=== PATIENT | female | born 1950 | race Caucasian/White ===

== ENCOUNTER 2017-08-25 06:20 | Inpatient (IN) ==
[2017-08-25] MEDS ORDERED: ACETAMINOPHEN 500 MG TABLET PO STA (06:59)
[2017-08-25] MEDS ORDERED: LEVOFLOXACIN INJ 500 MG in PREMIX 1 EACH IV STA (07:06)
[2017-08-25] MEDS ORDERED: ACETAMINOPHEN 500 MG TABLET ONE (07:08)
[2017-08-25] MEDS ORDERED: LEVOFLOXACIN INJ 100 ML IV ONE (07:33)
[2017-08-25 08:01] LABS: ABG Base Excess -1.5 MMOL/L (-2.5-2.5); ABG HCO3 23.1 MMOL/L (20-26); ABG Oxygen Saturation 93.6 % (95-100); ABG PCO2 47.4 MM HG (35-48); ABG PH 7.327 (7.35-7.45); ABG PO2 71.9 MM HG (80-95); ABG TCO2 22.3 MMOL/L (23-27); Allen Test Positive
[2017-08-25] MEDS ORDERED: ALBUTEROL 2.5 MG/3 ML NEB RESP TX PRN (08:54)
[2017-08-25] MEDS ORDERED: diphenhydrAMINE CAP 25 MG CAPSULE PO PRN (08:57)
[2017-08-25] MEDS ORDERED: DOCUSATE SODIUM 100 MG CAPSULE PO PRN (08:57)
[2017-08-25] MEDS ORDERED: PROMETHAZINE 25 MG/1 ML VIAL IM PRN (08:57)
[2017-08-25] MEDS ORDERED: ACETAMINOPHEN 325 MG TABLET PO PRN (08:57)
[2017-08-25] MEDS ORDERED: ONDANSETRON 4 MG/2 ML VIAL IV PRN (08:57)
[2017-08-25] MEDS ORDERED: MEPERIDINE 50 MG TABLET PO PRN (08:59)
[2017-08-25] MEDS ORDERED: NITROGLYCERIN SL 0.4 MG TABLET SL PRN (09:00)
[2017-08-25] MEDS ORDERED: MAGNESIUM SULF RIDER 4 GM in PREMIX 1 EACH IV PRN (09:22)
[2017-08-25] MEDS ORDERED: MAGNESIUM SULF RIDER 2 GM in PREMIX 1 EACH IV PRN (09:22)
[2017-08-25] MEDS: guaiFENesin/DM ER 600-30 MG TABLET PO PRN (11:20)
[2017-08-25] MEDS: amLODIPine 10 MG TABLET PO SCH (11:20)
[2017-08-25] MEDS: NEBIVOLOL 10 MG TABLET PO SCH (11:20)
[2017-08-25] MEDS: ROSUVASTATIN 20 MG TABLET PO SCH (11:20)
[2017-08-25] MEDS: RAMIPRIL 5 MG CAPSULE PO SCH ×2 (11:21→20:20)
[2017-08-25] MEDS: ASPIRIN EC 81 MG TABLET PO SCH (11:21)
[2017-08-25] MEDS: methylPREDNISolone SOD SUC 40 MG/1 ML VIAL IV SCH ×3 (11:21→21:05)
[2017-08-25] MEDS: NIACIN ER 500 MG TABLET PO SCH (11:21)
[2017-08-25] MEDS: MELOXICAM 7.5 MG TABLET PO SCH (11:21)
[2017-08-25] MEDS: OSELTAMIVIR 30 MG CAPSULE PO SCH ×2 (11:21→20:20)
[2017-08-25] MEDS: PANTOPRAZOLE 40 MG TABLET PO SCH (11:21)
[2017-08-25] MEDS: MONTELUKAST 10 MG TABLET PO SCH (11:21)
[2017-08-25] MEDS: SODIUM CHLORIDE 0.9% 1,000 ML IV SCH (11:22)
[2017-08-25] MEDS: BUDESONIDE/FORMOTEROL 160-4.5 INHALER 6 GM INH SCH ×2 (11:22→20:19)
[2017-08-25] MEDS: POTASSIUM CHLORIDE 20 MEQ TABLET PO SCH (11:22)
[2017-08-25 12:24] LABS: CKMB % 3.5 %
[2017-08-25 12:25] LABS: Troponin I Only 0.395 NG/ML (0.00-0.045)
[2017-08-25] MEDS: ALBUTEROL/IPRATROPIUM 3 ML NEB RESP TX SCH ×2 (12:46→19:48)
[2017-08-25] MEDS: FUROSEMIDE 100 MG/10 ML VIAL IV SCH (15:41)
[2017-08-25 16:30] LABS: CKMB % 3.8 %
[2017-08-25 16:31] LABS: Troponin I Only 0.519 NG/ML (0.00-0.045)
[2017-08-25] MEDS: ENOXAPARIN 40 MG/0.4 ML SYRINGE SUBCUT SCH (20:19)
[2017-08-25] MEDS: EZETIMIBE 10 MG TABLET PO SCH (20:20)
[2017-08-26] MEDS: SODIUM CHLORIDE 0.9% 1,000 ML IV SCH ×2 (02:32→17:48)
[2017-08-26] MEDS: methylPREDNISolone SOD SUC 40 MG/1 ML VIAL IV SCH ×4 (02:36→20:52)
[2017-08-26] MEDS: ALBUTEROL/IPRATROPIUM 3 ML NEB RESP TX SCH ×4 (03:30→19:07)
[2017-08-26 05:31] LABS: Basophils % 0.2 % (0.0-0.8); Hematocrit 35.9 VOL% (35.7-47.0); Hemoglobin 11.3 GM/DL (12.0-16.0); Immature Granulocytes % 0.9 %; Immature Granulocytes Absolute 0.18 #; Lymphocytes % 5.1 % (21.3-54.2); Mean Corpuscular HGB Conc 31.5 GM/DL (32-36); Mean Corpuscular Hemoglobin 27 PG (27-34); Mean Corpuscular Volume 86.1 FL (87-102); Monocytes # 0.5 10*3/uL (0.11-0.8); Monocytes % 2.5 % (1.7-12.7); Neutrophils # 17.7 10*3/uL (1.4-7.4); Neutrophils % 91.3 % (38.7-73.9); Platelet Count 156 T/CUMM (130-400); Red Blood Count 4.17 MC/CUMM (3.8-5.5); Red Cell Distribution Width 14.5 % (9.3-17.3); White Blood Count 19.3 T/CUMM (4-12)
[2017-08-26 05:53] LABS: Band Neutrophils 3 % (0-10); Lymphocytes 9 % (20-55); Segmented Neutrophils 85 % (50-85); Total Cells Counted 100
[2017-08-26 05:54] LABS: Giant Platelets Few; Hypochromasia 1+; Microcytosis Slight; Platelet Estimate Normal
[2017-08-26 06:02] LABS: Alanine Aminotransferase 15 U/L (13-56); Alkaline Phosphatase 73 U/L (45-117); Aspartate Amino Transferase 23 U/L (0-37); Bilirubin,Total < 0.39 MG/DL (0.2-1.0); Blood Urea Nitrogen 17 MG/DL (7-18); Calcium 8.1 MG/DL (8.5-10.1); Glucose 155 MG/DL (74-106); Osmolality,Calculated 285.3 MOS/KG (273-304); Potassium 3.4 MMOL/L (3.5-5.1); Sodium 141 MMOL/L (136-145); Total Protein 6.6 G/DL (6.4-8.3)
[2017-08-26] MEDS: LEVOFLOXACIN INJ 750 MG in PREMIX 1 EACH IV SCH (09:42)
[2017-08-26] MEDS: BUDESONIDE/FORMOTEROL 160-4.5 INHALER 6 GM INH SCH ×2 (09:42→20:50)
[2017-08-26] MEDS: FUROSEMIDE 100 MG/10 ML VIAL IV SCH ×2 (09:44→15:32)
[2017-08-26] MEDS: PANTOPRAZOLE 40 MG TABLET PO SCH (09:46)
[2017-08-26] MEDS: RAMIPRIL 5 MG CAPSULE PO SCH ×2 (09:46→20:52)
[2017-08-26] MEDS: NEBIVOLOL 10 MG TABLET PO SCH (09:46)
[2017-08-26] MEDS: amLODIPine 10 MG TABLET PO SCH (09:47)
[2017-08-26] MEDS: POTASSIUM CHLORIDE 20 MEQ TABLET PO SCH (09:47)
[2017-08-26] MEDS: MONTELUKAST 10 MG TABLET PO SCH (09:47)
[2017-08-26] MEDS: NIACIN ER 500 MG TABLET PO SCH (09:47)
[2017-08-26] MEDS: MELOXICAM 7.5 MG TABLET PO SCH (09:47)
[2017-08-26] MEDS: OSELTAMIVIR 30 MG CAPSULE PO SCH ×2 (09:47→20:51)
[2017-08-26] MEDS: ROSUVASTATIN 20 MG TABLET PO SCH (09:47)
[2017-08-26] MEDS: ASPIRIN EC 81 MG TABLET PO SCH (09:47)
[2017-08-26] MEDS: ENOXAPARIN 40 MG/0.4 ML SYRINGE SUBCUT SCH (20:51)
[2017-08-26] MEDS: EZETIMIBE 10 MG TABLET PO SCH (20:52)
[2017-08-26] MEDS: guaiFENesin/DM ER 600-30 MG TABLET PO PRN (20:52)
[2017-08-27] MEDS: ALBUTEROL/IPRATROPIUM 3 ML NEB RESP TX SCH ×5 (00:52→19:42)
[2017-08-27] MEDS: methylPREDNISolone SOD SUC 40 MG/1 ML VIAL IV SCH ×4 (03:51→20:46)
[2017-08-27] MEDS: SODIUM CHLORIDE 0.9% 1,000 ML IV SCH ×3 (03:56→20:46)
[2017-08-27 06:39] LABS: Basophils % 0.1 % (0.0-0.8); Hematocrit 37.1 VOL% (35.7-47.0); Hemoglobin 11.6 GM/DL (12.0-16.0); Immature Granulocytes % 0.6 %; Immature Granulocytes Absolute 0.12 #; Lymphocytes # 0.9 10*3/uL (1.4-4.0); Lymphocytes % 4.4 % (21.3-54.2); Mean Corpuscular HGB Conc 31.3 GM/DL (32-36); Mean Corpuscular Hemoglobin 27 PG (27-34); Mean Corpuscular Volume 86.5 FL (87-102); Mean Platelet Volume 11.2 FL (9.6-12.0); Monocytes # 0.5 10*3/uL (0.11-0.8); Monocytes % 2.6 % (1.7-12.7); Neutrophils % 92.3 % (38.7-73.9); Platelet Count 183 T/CUMM (130-400); Red Blood Count 4.29 MC/CUMM (3.8-5.5); Red Cell Distribution Width 14.6 % (9.3-17.3); White Blood Count 19.5 T/CUMM (4-12)
[2017-08-27 07:11] LABS: Band Neutrophils 2 % (0-10); Hypochromasia 1+; Lymphocytes 3 % (20-55); Microcytosis 1+; Myelocytes 1 %; Platelet Estimate Adequate; Segmented Neutrophils 92 % (50-85); Total Cells Counted 100
[2017-08-27 07:19] LABS: Alanine Aminotransferase 19 U/L (13-56); Albumin 3.1 G/DL (3.4-5.0); Alkaline Phosphatase 64 U/L (45-117); Aspartate Amino Transferase 22 U/L (0-37); Bilirubin,Total < 0.39 MG/DL (0.2-1.0); Blood Urea Nitrogen 27 MG/DL (7-18); Calcium 7.9 MG/DL (8.5-10.1); Glucose 162 MG/DL (74-106); Magnesium 2.2 MG/DL (1.8-2.4); Osmolality,Calculated 289.3 MOS/KG (273-304); Phosphorous 3.2 MG/DL (2.5-4.9); Sodium 141 MMOL/L (136-145); Total Protein 6.6 G/DL (6.4-8.3)
[2017-08-27] MEDS: NIACIN ER 500 MG TABLET PO SCH (09:18)
[2017-08-27] MEDS: FUROSEMIDE 100 MG/10 ML VIAL IV SCH (09:18)
[2017-08-27] MEDS: OSELTAMIVIR 30 MG CAPSULE PO SCH ×2 (09:18→20:49)
[2017-08-27] MEDS: BUDESONIDE/FORMOTEROL 160-4.5 INHALER 6 GM INH SCH ×2 (09:18→20:49)
[2017-08-27] MEDS: amLODIPine 10 MG TABLET PO SCH (09:19)
[2017-08-27] MEDS: MELOXICAM 7.5 MG TABLET PO SCH (09:19)
[2017-08-27] MEDS: NEBIVOLOL 10 MG TABLET PO SCH (09:19)
[2017-08-27] MEDS: RAMIPRIL 5 MG CAPSULE PO SCH ×2 (09:19→20:47)
[2017-08-27] MEDS: ROSUVASTATIN 20 MG TABLET PO SCH (09:20)
[2017-08-27] MEDS: PANTOPRAZOLE 40 MG TABLET PO SCH (09:20)
[2017-08-27] MEDS: POTASSIUM CHLORIDE 20 MEQ TABLET PO SCH (09:20)
[2017-08-27] MEDS: MONTELUKAST 10 MG TABLET PO SCH (09:20)
[2017-08-27] MEDS: LEVOFLOXACIN INJ 750 MG in PREMIX 1 EACH IV SCH (09:20)
[2017-08-27] MEDS: ASPIRIN EC 81 MG TABLET PO SCH (09:20)
[2017-08-27] MEDS: POTASSIUM CHLORIDE 20 MEQ TABLET PO PRN ×3 (11:10→15:07)
[2017-08-27] MEDS: ENOXAPARIN 40 MG/0.4 ML SYRINGE SUBCUT SCH (20:46)
[2017-08-27] MEDS: guaiFENesin/DM ER 600-30 MG TABLET PO PRN (20:46)
[2017-08-27] MEDS: EZETIMIBE 10 MG TABLET PO SCH (20:47)
[2017-08-27] MEDS ORDERED: ROSUVASTATIN 20 MG TABLET PO SCH (21:00)
[2017-08-28] MEDS: ALBUTEROL/IPRATROPIUM 3 ML NEB RESP TX SCH ×3 (00:37→13:34)
[2017-08-28] MEDS: methylPREDNISolone SOD SUC 40 MG/1 ML VIAL IV SCH ×3 (03:33→19:44)
[2017-08-28 07:27] LABS: Basophils % 0.1 % (0.0-0.8); Hematocrit 37.7 VOL% (35.7-47.0); Hemoglobin 11.6 GM/DL (12.0-16.0); Immature Granulocytes % 0.7 %; Immature Granulocytes Absolute 0.08 #; Lymphocytes # 0.8 10*3/uL (1.4-4.0); Lymphocytes % 6.7 % (21.3-54.2); Mean Corpuscular HGB Conc 30.8 GM/DL (32-36); Mean Corpuscular Hemoglobin 27 PG (27-34); Mean Corpuscular Volume 86.9 FL (87-102); Mean Platelet Volume 11.4 FL (9.6-12.0); Monocytes # 0.4 10*3/uL (0.11-0.8); Monocytes % 3.2 % (1.7-12.7); Neutrophils # 10.8 10*3/uL (1.4-7.4); Neutrophils % 89.3 % (38.7-73.9); Platelet Count 165 T/CUMM (130-400); Red Blood Count 4.34 MC/CUMM (3.8-5.5); Red Cell Distribution Width 14.5 % (9.3-17.3)
[2017-08-28 07:57] LABS: Calcium 7.7 MG/DL (8.5-10.1); Osmolality,Calculated 290.1 MOS/KG (273-304); Potassium 4.1 MMOL/L (3.5-5.1)
[2017-08-28] MEDS ORDERED: POTASSIUM CHLORIDE 20 MEQ TABLET PO SCH (09:00)
[2017-08-28] MEDS ORDERED: FUROSEMIDE 40 MG TABLET PO SCH (09:00)
[2017-08-28] MEDS ORDERED: LEVOFLOXACIN 750 MG TABLET PO SCH (09:00)
[2017-08-28] MEDS ORDERED: OSELTAMIVIR 75 MG CAPSULE PO SCH (09:00)
[2017-08-28] MEDS: amLODIPine 10 MG TABLET PO SCH (09:02)
[2017-08-28] MEDS: PANTOPRAZOLE 40 MG TABLET PO SCH (09:02)
[2017-08-28] MEDS: MELOXICAM 7.5 MG TABLET PO SCH (09:03)
[2017-08-28] MEDS: ASPIRIN EC 81 MG TABLET PO SCH (09:03)
[2017-08-28] MEDS: RAMIPRIL 5 MG CAPSULE PO SCH (09:03)
[2017-08-28] MEDS: NIACIN ER 500 MG TABLET PO SCH (09:03)
[2017-08-28] MEDS: NEBIVOLOL 10 MG TABLET PO SCH (09:03)
[2017-08-28] MEDS: MONTELUKAST 10 MG TABLET PO SCH (09:03)
[2017-08-28] MEDS: BUDESONIDE/FORMOTEROL 160-4.5 INHALER 6 GM INH SCH (09:04)
[2017-08-28] MEDS: SODIUM CHLORIDE 0.9% 1,000 ML IV SCH (10:18)
[2017-08-28 12:01] VITALS: BP 118/75
== END 2017-08-28 15:05 | disposition home or self-care (01) | DRG 191 ==
LOC: EDUNIT# → EDBD → N.ED 06:20 → N.EDINP 08:16 → N.2E 09:02
PROVIDERS: ADMIT Hospitalist; ATTEND Hospitalist

== ENCOUNTER 2019-02-28 17:28 | Inpatient (IN) ==
[2019-02-28] MEDS ORDERED: ALBUTEROL 2.5 MG/3 ML NEB RESP TX PRN (20:22)
[2019-02-28] MEDS ORDERED: ONDANSETRON 4 MG/2 ML VIAL IV PRN (20:22)
[2019-02-28] MEDS ORDERED: ACETAMINOPHEN 325 MG TABLET PO PRN (20:22)
[2019-02-28] MEDS ORDERED: ZALEPLON 5 MG CAPSULE PO PRN (20:22)
[2019-02-28] MEDS: methylPREDNISolone SOD SUC 40 MG/1 ML VIAL IV SCH (22:00)
[2019-02-28] MEDS: ENOXAPARIN 40 MG/0.4 ML SYRINGE SUBCUT SCH (22:03)
[2019-03-01] MEDS: ALBUTEROL/IPRATROPIUM 3 ML NEB RESP TX SCH ×4 (01:00→19:07)
[2019-03-01] MEDS: methylPREDNISolone SOD SUC 40 MG/1 ML VIAL IV SCH ×3 (05:33→21:23)
[2019-03-01 07:11] LABS: Hemoglobin 11.5 GM/DL (12.0-16.0); Immature Granulocytes % 0.6 %; Immature Granulocytes Absolute 0.04 #; Lymphocytes # 0.7 10*3/uL (1.4-4.0); Lymphocytes % 10.9 % (21.3-54.2); Mean Corpuscular HGB Conc 29.5 GM/DL (32-36); Mean Corpuscular Volume 86.1 FL (87-102); Mean Platelet Volume 9.9 FL (9.6-12.0); Monocytes % 1.4 % (1.7-12.7); Neutrophils % 87.1 % (38.7-73.9); Platelet Count 128 T/CUMM (130-400); Red Blood Count 4.53 MC/CUMM (3.8-5.5); Red Cell Distribution Width 14.5 % (9.3-17.3); White Blood Count 6.6 T/CUMM (4-12)
[2019-03-01 07:38] LABS: Alanine Aminotransferase 13 U/L (13-56); Albumin 3.1 G/DL (3.4-5.0); Alkaline Phosphatase 69 U/L (45-117); Aspartate Amino Transferase 9 U/L (0-37); Bilirubin,Total < 0.39 MG/DL (0.2-1.0); Blood Urea Nitrogen 9 MG/DL (7-18); Calcium 8.8 MG/DL (8.5-10.1); Glucose 242 MG/DL (74-106); Osmolality,Calculated 287.3 MOS/KG (273-304)
[2019-03-01] MEDS: NEBIVOLOL 10 MG TABLET PO SCH (08:39)
[2019-03-01] MEDS: RAMIPRIL 5 MG CAPSULE PO SCH ×2 (08:39→21:27)
[2019-03-01] MEDS: MELOXICAM 7.5 MG TABLET PO SCH (08:40)
[2019-03-01] MEDS: PANTOPRAZOLE 40 MG TABLET PO SCH (08:40)
[2019-03-01] MEDS: ROSUVASTATIN 20 MG TABLET PO SCH (08:40)
[2019-03-01] MEDS: NIACIN ER 500 MG TABLET PO SCH (08:40)
[2019-03-01] MEDS: ASPIRIN EC 81 MG TABLET PO SCH (08:40)
[2019-03-01] MEDS: FUROSEMIDE 40 MG TABLET PO SCH (08:40)
[2019-03-01] MEDS: CETIRIZINE 10 MG TABLET PO SCH (08:40)
[2019-03-01] MEDS: POTASSIUM CHLORIDE 20 MEQ TABLET PO SCH (08:40)
[2019-03-01] MEDS ORDERED: FUROSEMIDE 40 MG/4 ML VIAL IV ONE (12:45)
[2019-03-01] MEDS: cefTRIAXone 1,000 MG in SYRINGE 1 EACH IV SCH (13:06)
[2019-03-01] MEDS: MONTELUKAST 10 MG TABLET PO SCH (21:27)
[2019-03-01] MEDS: EZETIMIBE 10 MG TABLET PO SCH (21:27)
[2019-03-01] MEDS: ENOXAPARIN 40 MG/0.4 ML SYRINGE SUBCUT SCH (21:29)
[2019-03-02] MEDS: methylPREDNISolone SOD SUC 40 MG/1 ML VIAL IV SCH ×3 (04:18→20:45)
[2019-03-02 07:30] LABS: Calcium 8.7 MG/DL (8.5-10.1); Osmolality,Calculated 292.8 MOS/KG (273-304)
[2019-03-02 07:35] LABS: Basophils % 0.2 % (0.0-0.8); Hematocrit 42.3 VOL% (35.7-47.0); Immature Granulocytes % 0.8 %; Immature Granulocytes Absolute 0.15 #; Lymphocytes % 5.8 % (21.3-54.2); Mean Corpuscular HGB Conc 29.3 GM/DL (32-36); Mean Corpuscular Volume 87.9 FL (87-102); Mean Platelet Volume 10.2 FL (9.6-12.0); Neutrophils % 91.2 % (38.7-73.9); Platelet Count 176 T/CUMM (130-400); Red Blood Count 4.81 MC/CUMM (3.8-5.5); Red Cell Distribution Width 14.6 % (9.3-17.3); White Blood Count 17.7 T/CUMM (4-12)
[2019-03-02 07:36] LABS: Hemoglobin 12.4 GM/DL (12.0-16.0)
[2019-03-02 07:42] LABS: Anisocytosis Slight; Band Neutrophils 14 % (0-10); Lymphocytes 3 % (20-55); Platelet Estimate Normal; Segmented Neutrophils 81 % (50-85); Total Cells Counted 100
[2019-03-02] MEDS: ALBUTEROL/IPRATROPIUM 3 ML NEB RESP TX SCH ×4 (08:09→19:05)
[2019-03-02] MEDS: PANTOPRAZOLE 40 MG TABLET PO SCH (08:47)
[2019-03-02] MEDS: FUROSEMIDE 40 MG TABLET PO SCH (08:47)
[2019-03-02] MEDS: CETIRIZINE 10 MG TABLET PO SCH (08:47)
[2019-03-02] MEDS: ROSUVASTATIN 20 MG TABLET PO SCH (08:47)
[2019-03-02] MEDS: NEBIVOLOL 10 MG TABLET PO SCH (08:47)
[2019-03-02] MEDS: MELOXICAM 7.5 MG TABLET PO SCH (08:48)
[2019-03-02] MEDS: RAMIPRIL 5 MG CAPSULE PO SCH ×2 (08:48→20:45)
[2019-03-02] MEDS: POTASSIUM CHLORIDE 20 MEQ TABLET PO SCH (08:48)
[2019-03-02] MEDS: NIACIN ER 500 MG TABLET PO SCH (08:48)
[2019-03-02] MEDS: ASPIRIN EC 81 MG TABLET PO SCH (08:48)
[2019-03-02] MEDS: cefTRIAXone 1,000 MG in SYRINGE 1 EACH IV SCH (08:54)
[2019-03-02] MEDS ORDERED: ERGOCALCIFEROL 50,000 UNIT CAPSULE PO SCH (09:00)
[2019-03-02] MEDS: MONTELUKAST 10 MG TABLET PO SCH (20:45)
[2019-03-02] MEDS: EZETIMIBE 10 MG TABLET PO SCH (20:45)
[2019-03-02] MEDS: ENOXAPARIN 40 MG/0.4 ML SYRINGE SUBCUT SCH (20:46)
[2019-03-03] MEDS: ALBUTEROL/IPRATROPIUM 3 ML NEB RESP TX SCH ×4 (00:32→19:55)
[2019-03-03] MEDS: methylPREDNISolone SOD SUC 40 MG/1 ML VIAL IV SCH ×3 (04:26→21:43)
[2019-03-03 06:30] LABS: Basophils % 0.2 % (0.0-0.8); Hematocrit 41.8 VOL% (35.7-47.0); Immature Granulocytes % 1.3 %; Immature Granulocytes Absolute 0.24 #; Lymphocytes # 1.3 10*3/uL (1.4-4.0); Lymphocytes % 7.3 % (21.3-54.2); Mean Corpuscular HGB Conc 29.2 GM/DL (32-36); Mean Platelet Volume 10.8 FL (9.6-12.0); Monocytes % 2.4 % (1.7-12.7); Neutrophils % 88.8 % (38.7-73.9); Platelet Count 184 T/CUMM (130-400); Red Blood Count 4.75 MC/CUMM (3.8-5.5); Red Cell Distribution Width 14.4 % (9.3-17.3); White Blood Count 17.9 T/CUMM (4-12)
[2019-03-03 06:31] LABS: Calcium 8.6 MG/DL (8.5-10.1); Hemoglobin 12.2 GM/DL (12.0-16.0); Osmolality,Calculated 290.3 MOS/KG (273-304)
[2019-03-03] MEDS: NIACIN ER 500 MG TABLET PO SCH (08:37)
[2019-03-03] MEDS: CETIRIZINE 10 MG TABLET PO SCH (08:37)
[2019-03-03] MEDS: FUROSEMIDE 40 MG TABLET PO SCH (08:37)
[2019-03-03] MEDS: ASPIRIN EC 81 MG TABLET PO SCH (08:38)
[2019-03-03] MEDS: ROSUVASTATIN 20 MG TABLET PO SCH (08:38)
[2019-03-03] MEDS: NEBIVOLOL 10 MG TABLET PO SCH (08:38)
[2019-03-03] MEDS: PANTOPRAZOLE 40 MG TABLET PO SCH (08:38)
[2019-03-03] MEDS: RAMIPRIL 5 MG CAPSULE PO SCH ×2 (08:38→21:44)
[2019-03-03] MEDS: cefTRIAXone 1,000 MG in SYRINGE 1 EACH IV SCH (08:38)
[2019-03-03] MEDS: MELOXICAM 7.5 MG TABLET PO SCH (08:38)
[2019-03-03] MEDS: POTASSIUM CHLORIDE 20 MEQ TABLET PO SCH (08:38)
[2019-03-03] MEDS: EZETIMIBE 10 MG TABLET PO SCH (21:42)
[2019-03-03] MEDS: MONTELUKAST 10 MG TABLET PO SCH (21:42)
[2019-03-03] MEDS: ENOXAPARIN 40 MG/0.4 ML SYRINGE SUBCUT SCH (21:43)
[2019-03-04] MEDS: ALBUTEROL/IPRATROPIUM 3 ML NEB RESP TX SCH ×2 (00:32→07:16)
[2019-03-04 06:29] LABS: Basophils % 0.2 % (0.0-0.8); Immature Granulocytes % 2.1 %; Immature Granulocytes Absolute 0.29 #; Lymphocytes # 1.3 10*3/uL (1.4-4.0); Lymphocytes % 9.5 % (21.3-54.2); Mean Corpuscular HGB Conc 29.8 GM/DL (32-36); Mean Corpuscular Volume 86.8 FL (87-102); Mean Platelet Volume 10.4 FL (9.6-12.0); Monocytes % 2.6 % (1.7-12.7); Neutrophils % 85.6 % (38.7-73.9); Platelet Count 161 T/CUMM (130-400); Red Blood Count 4.84 MC/CUMM (3.8-5.5); Red Cell Distribution Width 14.1 % (9.3-17.3); White Blood Count 13.8 T/CUMM (4-12)
[2019-03-04 06:31] LABS: Hemoglobin 12.5 GM/DL (12.0-16.0)
[2019-03-04 06:54] LABS: Anisocytosis Slight; Microcytosis Slight; Target Cells Few
[2019-03-04 06:55] LABS: Platelet Estimate Normal
[2019-03-04] MEDS: CETIRIZINE 10 MG TABLET PO SCH (08:54)
[2019-03-04] MEDS: FUROSEMIDE 40 MG TABLET PO SCH (08:55)
[2019-03-04] MEDS: MELOXICAM 7.5 MG TABLET PO SCH (08:55)
[2019-03-04] MEDS: RAMIPRIL 5 MG CAPSULE PO SCH (08:55)
[2019-03-04] MEDS: ROSUVASTATIN 20 MG TABLET PO SCH (08:55)
[2019-03-04] MEDS: NIACIN ER 500 MG TABLET PO SCH (08:55)
[2019-03-04] MEDS: NEBIVOLOL 10 MG TABLET PO SCH (08:55)
[2019-03-04] MEDS: POTASSIUM CHLORIDE 20 MEQ TABLET PO SCH (08:55)
[2019-03-04] MEDS: PANTOPRAZOLE 40 MG TABLET PO SCH (08:55)
[2019-03-04] MEDS: ASPIRIN EC 81 MG TABLET PO SCH (08:55)
[2019-03-04] MEDS: methylPREDNISolone SOD SUC 40 MG/1 ML VIAL IV SCH (08:56)
[2019-03-04] MEDS: cefTRIAXone 1,000 MG in SYRINGE 1 EACH IV SCH (08:59)
[2019-03-04 12:36] VITALS: BP 154/62
== END 2019-03-04 13:19 | disposition home or self-care (01) | DRG 191 ==
LOC: N.5E → SUATTDRO 19:07
PROVIDERS: ADMIT Internal Medicine; ATTEND Internal Medicine

== ENCOUNTER 2020-01-04 16:10 | Inpatient (IN) ==
[2020-01-04] MEDS ORDERED: ORPHENADRINE 60 MG/2 ML VIAL IV STA (16:29)
[2020-01-04] MEDS ORDERED: KETOROLAC 30 MG/1 ML VIAL IV STA (16:29)
[2020-01-04] MEDS ORDERED: ONDANSETRON 4 MG/2 ML VIAL IV STA (16:29)
[2020-01-04] MEDS ORDERED: ALBUTEROL/IPRATROPIUM 3 ML NEB RESP TX STA (16:29)
[2020-01-04 17:20] LABS: Immature Granulocytes % 0.4 %
[2020-01-04 17:45] LABS: Basophils # 0.1 10*3/uL (0.0-0.2); Basophils % 0.4 % (0.0-0.8); Hematocrit 41.5 VOL% (35.7-47.0); Immature Granulocytes Absolute 0.05 #; Lymphocytes # 2.7 10*3/uL (1.4-4.0); Lymphocytes % 19.3 % (21.3-54.2); Mean Corpuscular HGB Conc 28.7 GM/DL (32-36); Mean Corpuscular Volume 92.4 FL (87-102); Mean Platelet Volume 10.9 FL (9.6-12.0); Monocytes % 6.2 % (1.7-12.7); Neutrophils % 73.7 % (38.7-73.9); Platelet Count 177 T/CUMM (130-400); Red Blood Count 4.49 MC/CUMM (3.8-5.5); White Blood Count 13.7 T/CUMM (4-12)
[2020-01-04 17:46] LABS: Alanine Aminotransferase 12 U/L (13-56); Albumin 3.6 G/DL (3.4-5.0); Alkaline Phosphatase 73 U/L (45-117); Aspartate Amino Transferase 11 U/L (0-37); Blood Urea Nitrogen 18 MG/DL (7-18); Calcium 9.1 MG/DL (8.5-10.1); Estimated Glom Filtration Rate 45 ML/MIN; Glucose 120 MG/DL (74-106); Hemoglobin 11.9 GM/DL (12.0-16.0); Osmolality,Calculated 275.8 MOS/KG (273-304); Total Protein 8.2 G/DL (6.4-8.3); Troponin I < 0.015 NG/ML (0.00-0.045)
[2020-01-04 17:50] LABS: PT Patient Result 10.8 SECS (9.6-12.2); Partial Thromboplastin Time 26.9 SECS (20.8-36.0)
[2020-01-04 18:25] LABS: Apearance,Urine Slightly Hazy (Clear); Bacteria,Urine Occasional /HPF (Few); Bilirubin,Urine Negative (Negative); Blood, Urine Negative (Negative); Glucose,Urine (UA) Negative (Negative); Hyaline Casts,Urine 19 /LPF (0-3); Ketones,Urine Negative (Negative); Mucus,Urine Occasional /LPF (Occasional); Nitrite,Urine Negative (Negative); Protein,Urine Negative; RBC,Urine 2 /HPF (0-4); Squamous Epithelial Cell,Urine Occasional /HPF (0-10); Urine Color Yellow (Yellow); Urine Specific Gravity 1.016 (1.001-1.035); WBC,Urine 4 /HPF (0-6)
[2020-01-04 18:50] LABS: Barbiturates Screen,Urine Negative (Negative); Benzodiazepines Screen,Urine Negative (Negative); Cannabinoid Screen,Urine Negative (Negative); Opiate Screen,Urine Positive (Negative); Phencyclidine Screen,Urine Negative (Negative)
[2020-01-04] MEDS ORDERED: DOPamine 800 MG/250 ML PREMIX IV PRN (19:11)
[2020-01-04] MEDS ORDERED: ENOXAPARIN 100 MG/ML SYRINGE SUBCUT SCH (20:00)
[2020-01-04 20:05] LABS: ABG Base Excess 3.1 MMOL/L (-2.5-2.5); ABG HCO3 31.3 MMOL/L (20-26); ABG PCO2 63.2 MM HG (35-48); ABG PH 7.312 (7.35-7.45); ABG PO2 149.2 MM HG (80-95); ABG TCO2 33.2 MMOL/L (23-27); Allen Test Positive
[2020-01-04] MEDS ORDERED: NOREPINEPHRINE 8 MG in SODIUM CHLORIDE 0.9% 242 ML IV PRN (20:11)
[2020-01-04] MEDS: cefTRIAXone 1,000 MG in SYRINGE 1 EACH IV SCH (20:32)
[2020-01-04] MEDS: SODIUM CHLORIDE 0.9% 1,000 ML IV SCH (20:32)
[2020-01-04] MEDS: MONTELUKAST 10 MG TABLET PO SCH (20:36)
[2020-01-04] MEDS: EZETIMIBE 10 MG TABLET PO SCH (20:36)
[2020-01-04] MEDS ORDERED: ALBUTEROL/IPRATROPIUM 3 ML NEB RESP TX ONE (23:49)
[2020-01-05] MEDS: ALBUTEROL/IPRATROPIUM 3 ML NEB RESP TX SCH ×4 (01:30→20:41)
[2020-01-05 02:59] LABS: Basophils % 0.3 % (0.0-0.8); Hematocrit 37.3 VOL% (35.7-47.0); Hemoglobin 10.8 GM/DL (12.0-16.0); Immature Granulocytes % 0.4 %; Immature Granulocytes Absolute 0.04 #; Lymphocytes # 2.3 10*3/uL (1.4-4.0); Lymphocytes % 22.4 % (21.3-54.2); Mean Platelet Volume 11.9 FL (9.6-12.0); Monocytes % 5.9 % (1.7-12.7); Red Cell Distribution Width 15.1 % (9.3-17.3); White Blood Count 10.3 T/CUMM (4-12)
[2020-01-05 03:02] LABS: Alanine Aminotransferase 11 U/L (13-56); Albumin 2.9 G/DL (3.4-5.0); Alkaline Phosphatase 61 U/L (45-117); Aspartate Amino Transferase 15 U/L (0-37); Bilirubin,Total < 0.39 MG/DL (0.2-1.0); Blood Urea Nitrogen 19 MG/DL (7-18); Calcium 8.5 MG/DL (8.5-10.1); Estimated Glom Filtration Rate 51 ML/MIN; Glucose 139 MG/DL (74-106); HDL Cholesterol 45 MG/DL (40-60); Risk Ratio 2.64; Total Protein 6.9 G/DL (6.4-8.3); Triglycerides 107 MG/DL (2-150); VLDL CHOLESTEROL 21.4 MG/DL
[2020-01-05 03:04] LABS: Hypochromasia Slight; Platelet Estimate Adequate
[2020-01-05 03:05] LABS: Platelet Count 105 T/CUMM (130-400)
[2020-01-05] MEDS: SODIUM CHLORIDE 0.9% 1,000 ML IV SCH ×2 (06:00→17:15)
[2020-01-05] MEDS ORDERED: POTASSIUM CHLORIDE RIDER 10 MEQ in PREMIX 1 EACH IV PRN (08:24)
[2020-01-05] MEDS ORDERED: MAGNESIUM SULF RIDER 2 GM in PREMIX 1 EACH IV PRN (08:24)
[2020-01-05] MEDS ORDERED: DIAZEPAM 5 MG TABLET PO ONE (10:00)
[2020-01-05] MEDS ORDERED: diphenhydrAMINE CAP 25 MG CAPSULE PO ONE (10:00)
[2020-01-05] MEDS ORDERED: LIDOCAINE 1% 20 ML VIAL ONE (13:14)
[2020-01-05] MEDS ORDERED: ADENOSINE 90 MG/30 ML VIAL IV ONE (13:57)
[2020-01-05] MEDS ORDERED: MIDAZOLAM 2 MG/2 ML VIAL ONE (14:00)
[2020-01-05] MEDS ORDERED: ENOXAPARIN 60 MG/0.6 ML SYRINGE ONE (14:23)
[2020-01-05] MEDS ORDERED: TIROFIBAN 5,000 MCG/100 ML PREMIX IV ONE (14:23)
[2020-01-05] MEDS ORDERED: TIROFIBAN 5,000 MCG/100 ML PREMIX IV SCH (14:30)
[2020-01-05] MEDS ORDERED: TICAGRELOR 90 MG TABLET ONE (14:35)
[2020-01-05] MEDS: ASPIRIN EC 81 MG TABLET PO SCH (17:14)
[2020-01-05] MEDS: ROSUVASTATIN 20 MG TABLET PO SCH (17:14)
[2020-01-05] MEDS: NIACIN ER 500 MG TABLET PO SCH (17:14)
[2020-01-05] MEDS: PANTOPRAZOLE 40 MG TABLET PO SCH (17:15)
[2020-01-05] MEDS: cefTRIAXone 1,000 MG in SYRINGE 1 EACH IV SCH (20:02)
[2020-01-05] MEDS: MONTELUKAST 10 MG TABLET PO SCH (20:03)
[2020-01-05] MEDS: EZETIMIBE 10 MG TABLET PO SCH (20:03)
[2020-01-05] MEDS: TICAGRELOR 90 MG TABLET PO SCH (20:04)
[2020-01-05] MEDS: ONDANSETRON 4 MG/2 ML VIAL IV PRN (20:23)
[2020-01-06] MEDS: ALBUTEROL/IPRATROPIUM 3 ML NEB RESP TX SCH ×4 (00:42→19:19)
[2020-01-06] MEDS: SODIUM CHLORIDE 0.9% 1,000 ML IV SCH (03:33)
[2020-01-06 05:59] LABS: Basophils % 0.2 % (0.0-0.8); Hematocrit 32.4 VOL% (35.7-47.0); Hemoglobin 9.7 GM/DL (12.0-16.0); Immature Granulocytes % 0.3 %; Immature Granulocytes Absolute 0.03 #; Lymphocytes # 1.1 10*3/uL (1.4-4.0); Lymphocytes % 12.2 % (21.3-54.2); Mean Corpuscular HGB Conc 29.9 GM/DL (32-36); Mean Corpuscular Volume 89.8 FL (87-102); Mean Platelet Volume 10.9 FL (9.6-12.0); Monocytes % 6.4 % (1.7-12.7); Neutrophils % 80.9 % (38.7-73.9); Platelet Count 130 T/CUMM (130-400); Red Blood Count 3.61 MC/CUMM (3.8-5.5); Red Cell Distribution Width 14.7 % (9.3-17.3); White Blood Count 9.2 T/CUMM (4-12)
[2020-01-06 06:23] LABS: Troponin I 0.453 NG/ML (0.00-0.045)
[2020-01-06 06:40] LABS: Albumin 2.8 G/DL (3.4-5.0); Bilirubin,Total 0.4 MG/DL (0.2-1.0); Calcium 8.7 MG/DL (8.5-10.1); Osmolality,Calculated 280.4 MOS/KG (273-304); Total Protein 6.6 G/DL (6.4-8.3)
[2020-01-06] MEDS: ASPIRIN EC 81 MG TABLET PO SCH (09:10)
[2020-01-06] MEDS: ENOXAPARIN 40 MG/0.4 ML SYRINGE SUBCUT SCH (09:10)
[2020-01-06] MEDS: NIACIN ER 500 MG TABLET PO SCH (09:10)
[2020-01-06] MEDS: TICAGRELOR 90 MG TABLET PO SCH ×2 (09:10→21:05)
[2020-01-06] MEDS: PANTOPRAZOLE 40 MG TABLET PO SCH (09:10)
[2020-01-06] MEDS: ROSUVASTATIN 20 MG TABLET PO SCH (09:10)
[2020-01-06 14:25] LABS: ABG Base Excess 8.6 MMOL/L (-2.5-2.5); ABG HCO3 32.3 MMOL/L (20-26); ABG Oxygen Saturation 96.1 % (95-100); ABG PCO2 68.7 MM HG (35-48); ABG PH 7.336 (7.35-7.45); ABG PO2 79.2 MM HG (80-95); ABG TCO2 33.7 MMOL/L (23-27); Allen Test Positive
[2020-01-06 15:00] LABS: Hematocrit 33.6 VOL% (35.7-47.0); Hemoglobin 9.8 GM/DL (12.0-16.0)
[2020-01-06 15:09] LABS: % Iron Saturation 18.9 % (18-50)
[2020-01-06] MEDS: NEBIVOLOL 5 MG TABLET PO SCH (15:49)
[2020-01-06] MEDS: ONDANSETRON 4 MG/2 ML VIAL IV PRN (21:04)
[2020-01-06] MEDS: cefTRIAXone 1,000 MG in SYRINGE 1 EACH IV SCH (21:04)
[2020-01-06] MEDS: MONTELUKAST 10 MG TABLET PO SCH (21:05)
[2020-01-06] MEDS: EZETIMIBE 10 MG TABLET PO SCH (21:05)
[2020-01-07] MEDS: ALBUTEROL/IPRATROPIUM 3 ML NEB RESP TX SCH ×2 (00:51→08:34)
[2020-01-07 04:46] LABS: ABG Base Excess 10.6 MMOL/L (-2.5-2.5); ABG HCO3 34.2 MMOL/L (20-26); ABG Oxygen Saturation 92.1 % (95-100); ABG PCO2 58.7 MM HG (35-48); ABG PH 7.411 (7.35-7.45); ABG PO2 59.9 MM HG (80-95); ABG TCO2 33.8 MMOL/L (23-27); Allen Test Positive; Pt O2 Delivery Device BIPAP
[2020-01-07 05:23] LABS: Basophils % 0.2 % (0.0-0.8); Hematocrit 31.9 VOL% (35.7-47.0); Hemoglobin 9.6 GM/DL (12.0-16.0); Immature Granulocytes % 0.1 %; Immature Granulocytes Absolute 0.01 #; Lymphocytes # 1.5 10*3/uL (1.4-4.0); Lymphocytes % 18.4 % (21.3-54.2); Mean Corpuscular HGB Conc 30.1 GM/DL (32-36); Mean Corpuscular Volume 90.1 FL (87-102); Monocytes % 7.6 % (1.7-12.7); Neutrophils % 73.7 % (38.7-73.9); Platelet Count 114 T/CUMM (130-400); Red Blood Count 3.54 MC/CUMM (3.8-5.5); Red Cell Distribution Width 14.7 % (9.3-17.3); White Blood Count 8.2 T/CUMM (4-12)
[2020-01-07 05:56] LABS: Albumin 2.8 G/DL (3.4-5.0); Bilirubin,Total 0.8 MG/DL (0.2-1.0); Calcium 8.9 MG/DL (8.5-10.1); Osmolality,Calculated 281.3 MOS/KG (273-304); Total Protein 6.9 G/DL (6.4-8.3)
[2020-01-07 07:56] VITALS: BP 150/69
[2020-01-07] MEDS: NIACIN ER 500 MG TABLET PO SCH (09:19)
[2020-01-07] MEDS: NEBIVOLOL 5 MG TABLET PO SCH (09:20)
[2020-01-07] MEDS: TICAGRELOR 90 MG TABLET PO SCH (09:20)
[2020-01-07] MEDS: ENOXAPARIN 40 MG/0.4 ML SYRINGE SUBCUT SCH (09:20)
[2020-01-07] MEDS: ASPIRIN EC 81 MG TABLET PO SCH (09:20)
[2020-01-07] MEDS: ROSUVASTATIN 20 MG TABLET PO SCH (09:20)
[2020-01-07] MEDS: PANTOPRAZOLE 40 MG TABLET PO SCH (09:20)
== END 2020-01-07 11:00 | disposition home or self-care (01) | DRG 246 ==
LOC: N.ED 16:10 → SUATTDRO 19:22 → N.EDINP 19:22 → N.CC 20:08 → N.TELEN 01-05 18:41
PROVIDERS: ADMIT Internal Medicine; ATTEND Family Medicine

== ENCOUNTER 2020-10-11 14:37 | Observation (INO) ==
[2020-10-11] MEDS ORDERED: ENOXAPARIN 100 MG/ML SYRINGE SUBCUT STA (14:56)
[2020-10-11] MEDS ORDERED: NITROGLYCERIN 2% OINT 1 INCH/GM PACK TOP STA (14:56)
[2020-10-11] MEDS ORDERED: ASPIRIN CHEW 81 MG TABLET PO STA (14:56)
[2020-10-11 15:08] LABS: Basophils % 0.3 % (0.0-0.8); Hematocrit 38.5 VOL% (35.7-47.0); Hemoglobin 11.9 GM/DL (12.0-16.0); Immature Granulocytes % 0.3 %; Immature Granulocytes Absolute 0.03 #; Lymphocytes # 2.1 10*3/uL (1.4-4.0); Lymphocytes % 19.6 % (21.3-54.2); Mean Corpuscular HGB Conc 30.9 GM/DL (32-36); Mean Corpuscular Volume 84.2 FL (87-102); Mean Platelet Volume 9.8 FL (9.6-12.0); Neutrophils % 74.8 % (38.7-73.9); Platelet Count 158 T/CUMM (130-400); Red Blood Count 4.57 MC/CUMM (3.8-5.5); Red Cell Distribution Width 15.2 % (9.3-17.3); White Blood Count 10.8 T/CUMM (4-12)
[2020-10-11] MEDS ORDERED: ASPIRIN 325 MG TABLET ONE (15:14)
[2020-10-11 15:39] LABS: Albumin 3.4 G/DL (3.4-5.0); Bilirubin,Total 0.4 MG/DL (0.2-1.0); Calcium 8.6 MG/DL (8.5-10.1); Osmolality,Calculated 287.8 MOS/KG (273-304); Total Protein 7.1 G/DL (6.4-8.3)
[2020-10-11] MEDS ORDERED: GLUCAGON 1 MG VIAL IM PRN (16:45)
[2020-10-11] MEDS ORDERED: ACETAMINOPHEN 325 MG TABLET PO PRN (16:45)
[2020-10-11] MEDS ORDERED: ONDANSETRON 4 MG/2 ML VIAL IV PRN (16:45)
[2020-10-11] MEDS ORDERED: DEXTROSE 50% 25 GM/50 ML VIAL IV PRN (16:45)
[2020-10-11] MEDS ORDERED: POTASSIUM CHLORIDE 20 MEQ TABLET PO PRN (16:53)
[2020-10-11] MEDS ORDERED: POTASSIUM CHLORIDE 20 MEQ TABLET PO ONE (17:30)
[2020-10-11] MEDS ORDERED: NITROGLYCERIN 2% OINT 1 INCH/GM PACK TOP SCH (18:00)
[2020-10-11] MEDS ORDERED: MAGNESIUM SULF RIDER 1 GM in PREMIX 1 EACH IV ONE (20:00)
[2020-10-12 07:07] LABS: Albumin 2.9 G/DL (3.4-5.0); Bilirubin,Total 0.4 MG/DL (0.2-1.0); Calcium 8.5 MG/DL (8.5-10.1); Osmolality,Calculated 279.4 MOS/KG (273-304); Risk Ratio 3.18; Total Protein 6.7 G/DL (6.4-8.3); VLDL CHOLESTEROL 20.2 MG/DL
[2020-10-12 07:40] VITALS: BP 110/52
[2020-10-12] MEDS ORDERED: ENOXAPARIN 40 MG/0.4 ML SYRINGE SUBCUT SCH (09:00)
[2020-10-12] MEDS ORDERED: NEBIVOLOL 5 MG TABLET PO SCH (09:00)
[2020-10-12] MEDS ORDERED: FUROSEMIDE 40 MG TABLET PO SCH (09:00)
[2020-10-12] MEDS ORDERED: PANTOPRAZOLE 40 MG TABLET PO SCH (09:00)
[2020-10-12] MEDS ORDERED: OLMESARTAN 20 MG TABLET PO SCH (09:00)
[2020-10-12] MEDS ORDERED: ASCORBIC ACID 500 MG TABLET PO SCH (09:00)
[2020-10-12] MEDS ORDERED: CETIRIZINE 10 MG TABLET PO SCH (09:00)
[2020-10-12] MEDS ORDERED: ASPIRIN EC 81 MG TABLET PO SCH (09:00)
[2020-10-12] MEDS ORDERED: ROSUVASTATIN 20 MG TABLET PO SCH (09:00)
[2020-10-12] MEDS ORDERED: hydrALAZINE 25 MG TABLET PO SCH (09:00)
[2020-10-12] MEDS ORDERED: ASPIRIN EC 325 MG TABLET PO SCH (09:00)
[2020-10-12] MEDS ORDERED: EZETIMIBE 10 MG TABLET PO SCH (21:00)
== END 2020-10-12 11:00 | disposition home or self-care (01) ==
LOC: EDBD → EDUNIT# → EDSEX → N.ED 14:37 → N.3E 14:37
PROVIDERS: ADMIT Emergency Medicine; ATTEND Emergency Medicine